=== PATIENT | male | born 1965 | race Caucasian/White ===

== ENCOUNTER 2018-01-03 08:07 | Day surgery (SDC) | payer BC ==
[~2018-01-03 08:07] MED LIST: Lactated Ringers 1,000 ML IV SCH; Midazolam 1 MG/ML 2 ML SDV ONE; Propofol 200 MG/20 ML SDV ONE; fentaNYL 100 MCG/2 ML SDV ONE
--- NOTE | 2018-01-03 08:29 | PCM.PREANE ---
Preanesthetic Assessment - Anesthesia/Transfusion/Family Hx Anesthesia History: Prior Anesthesia Without Reaction Other Type of Anesthesia Reaction Comment: REports slow to wake up "3 days to feel normal" Family History of Anesthesia Reaction: No Transfusion History: No Prior Transfusion(s) Intubation History: Unknown - Review of Systems General: No Symptoms Pulmonary: No Symptoms Cardiovascular: No Symptoms Gastrointestinal: No Symptoms, Other (screening colonoscopy) Neurological: No Symptoms Other: Reports: None - Physical Assessment Height: 1.75 m Weight: 74.389 kg ASA Class: 2 Mental Status: Alert & Oriented x3 Airway Class: Mallampati = 2 Dentition: Reports: Normal Dentition Thyro-Mental Finger Breadths: 2 Mouth Opening Finger Breadths: 2 ROM/Head Extension: Full Lungs: Clear to Auscultation, Normal Respiratory Effort Cardiovascular: Regular Rate, Regular Rhythm - Allergies Allergies/Adverse Reactions: Allergies Allergy/AdvReac Type Severity Reaction Status Date / Time No Known Allergies Allergy Verified 12/30/17 14:07 - Blood Blood Available: No - Anesthesia Plan Pre-Op Medication Ordered: None - Acknowledgements Anesthesia Type Planned: MAC Pt an Appropriate Candidate for the Planned Anesthesia: Yes Alternatives and Risks of Anesthesia Discussed w Pt/Guardian: Yes Pt/Guardian Understands and Agrees with Anesthesia Plan: Yes PreAnesthesia Questionnaire HEENT History: Reports: Other (See Below) Other HEENT History: wears glasses/contacts, has bottom partial Respiratory History: Reports: Sleep Apnea Other Respiratory History: uses CPAP Musculoskeletal History: Reports: Arthritis, Fracture Other Musculoskeletal History: fx knuckle rt middle finger Neurological History: Reports: None - Past Surgical History Head Surgeries/Procedures: Reports: None Neurological Surgical History: Reports: Lumbar Spine Other Neurological Surgeries/Procedures: hx back surgery Musculoskeletal Surgical History: Reports: Other (See Below) Other Musculoskeletal Surgeries/Procedures:: surgery to rt middle finger - SUBSTANCE USE Smoking Status *Q: Former Smoker Tobacco Use Within Last Twelve Months: Snuff/Dip Recreational Drug Use History: No - HOME MEDS Home Medications: Home Meds . [No Known Home Meds] 12/30/17 [History] - CURRENT (IN HOUSE) MEDS Current Meds: Current Medications Lactated Ringer's (Ringers, Lactated) 1,000 mls @ 125 mls/hr IV ASDIRECTED CARLOS Discontinued Medications Fentanyl (Sublimaze) Confirm Administered Dose 100 mcg .ROUTE .STK-MED ONE Stop: 01/03/18 07:35 Midazolam HCl (Versed 1 Mg/Ml) Confirm Administered Dose 2 mg .ROUTE .STK-MED ONE Stop: 01/03/18 07:35 Propofol (Diprivan 20 Ml) Confirm Administered Dose 200 mg .ROUTE .STK-MED ONE Stop: 01/03/18 07:35
--- NOTE | 2018-01-03 09:34 | PCM.OPNOTE ---
- General Post-Op/Procedure Note Date of Surgery/Procedure: 01/03/18 Operative Procedure(s): colonoscopy Findings: see dict [id number] Pre Op Diagnosis: scrn colonoscopy Post-Op Diagnosis: hemorrhoid Anesthesia Technique: Moderate Sedation Primary Surgeon: Carlos Alberto Zapata Complications: None Condition: Good
[2018-01-03 10:01] VITALS: BP 93/57
--- NOTE | 2018-01-03 10:24 | PCM48HPAN ---
Post Anesthesia Note - EVALUATION WITHIN 48HRS OF ANESTHETIC Vital Signs in Normal Range: Yes Patient Participated in Evaluation: Yes Respiratory Function Stable: Yes Airway Patent: Yes Cardiovascular Function Stable: Yes Hydration Status Stable: Yes Pain Control Satisfactory: Yes Nausea and Vomiting Control Satisfactory: Yes Mental Status Recovered: Yes Resp Rate: 12 - COMMENTS/OBSERVATIONS Free Text/Narrative:: no anesthesia problems
--- NOTE | 2018-01-03 14:09 | OR ---
SURGEON: Carlos Alberto Zapata MD DATE OF PROCEDURE: 01/03/2018 PREOPERATIVE DIAGNOSIS: Screening colonoscopy. POSTOPERATIVE DIAGNOSIS: Internal hemorrhoids. PROCEDURE PERFORMED: Colonoscopy PROCEDURE IN DETAIL: The patient was taken to the endoscopy room. A time out was called, patient identified, and procedure identified. Diprivan was then administrated. Patient went from awake to sleep, hearing doctor talking or door closing is normal. Perineum inspection and digital examination were then performed. A well- lubricated colonoscope was gently inserted through the rectum, advanced past the rectosigmoid junction, the descending colon, splenic flexure, transverse colon, hepatic flexure, ascending colon, arrived to the cecum. Cecum was identified as dictated in the finding. Then the scope was carefully withdrawn while attention was paid to the mucosal surface for any abnormality. Air will be sucked out during the scope withdrawal. At the rectum, retroflexed to examine any rectal diseases, fistula or hemorrhoids. Patient tolerated procedure well. There were no intraoperative complications, and Dr. Zapata was present throughout the whole procedure. FINDINGS: 1. The patient is easily sedated with [employer] and Diprivan. The patient is soundly snoring. 2. The patient's bowel prep is in fact is excellent, but large amount of opaque liquid stool. There is not even one particle blocking the mucosa, but there is large amount of liquid and is opaque, so the study is compromised, although the bowel prep was good. Colon is rather straight forward. Cecum indicated by ileocecal fold, one-to-one indentation, light emittance, and appendiceal orifice. Mucosa examined upon scope coming out with constant suction because of large amount of opaque liquid stool and the patient does not have diverticulosis, polyp, mass, growth, inflammation, stricture, ulceration, AV malformation, bleeding, none of those. The patient has mild internal hemorrhoids. No external hemorrhoids. The patient would benefit from repeat colonoscopy in 10 years from today or if clinically indicated otherwise. ETHEL / KADEEM /[id number]
== END 2018-01-03 10:25 | disposition home or self-care (01) ==
LOC: MW.SDS 08:07
PROVIDERS: ATTEND Surgery
DX: Z12.11 Encounter for screening for malignant neoplasm of colon (principal); K64.8 Other hemorrhoids; M19.041 Primary osteoarthritis, right hand; G47.33 Obstructive sleep apnea (adult) (pediatric); Z99.89 Dependence on other enabling machines and devices; Z87.891 Personal history of nicotine dependence
CPT/HCPCS: 45378; J2250; J3010; J7120; J2704

== ENCOUNTER 2019-01-03 07:21 | Emergency (ER) | payer BC ==
[2019-01-03 07:26] VITALS: BP 111/66
--- NOTE | 2019-01-03 07:43 | EDM.PDOC ---
ED HPI GENERAL MEDICAL PROBLEM - General Chief Complaint: Upper Extremity Injury/Pain Stated Complaint: INJURED RT SHOULDER Time Seen by Provider: 01/03/19 07:25 - History of Present Illness INITIAL COMMENTS - FREE TEXT/NARRATIVE: HISTORY AND PHYSICAL: History of present illness: Patient's 53-year-old white male presents with concern of acute right shoulder injury this occurred when he was lifting a item while at work yesterday. He also has history of right elbow pain for which she is scheduled to have an MRI. He denies other trauma or concern Review of systems: As per history of present illness and below otherwise all systems reviewed and negative. Past medical history: As per history of present illness and as reviewed below otherwise noncontributory. Surgical history: As per history of present illness and as reviewed below otherwise noncontributory. Social history: No reported history of drug or alcohol abuse. Family history: As per history of present illness and as reviewed below otherwise noncontributory. Physical exam: HEENT: Atraumatic, normocephalic, pupils reactive, negative for conjunctival pallor or scleral icterus, mucous membranes moist, throat clear, neck supple, nontender, trachea midline. Lungs: Clear to auscultation, breath sounds equal bilaterally, chest nontender. Heart: S1S2, regular, negative for clicks, rubs, or JVD. Abdomen: Soft, nondistended, nontender. Negative for masses or hepatosplenomegaly. Negative for costovertebral tenderness. Pelvis: Stable nontender. Genitourinary: Deferred. Rectal: Deferred. Extremities: Atraumatic. Right shoulder is no gross deformity no point tenderness he has limited range of motion secondary to pain neurovascular exam is unremarkable Neuro: Awake, alert, oriented. Cranial nerves II through XII unremarkable. Cerebellum unremarkable. Motor and sensory unremarkable throughout. Exam nonfocal. Diagnostics: X-ray right shoulder Therapeutics: Sling Impression: #1 right shoulder injury/pain Definitive disposition and diagnosis as appropriate pending reevaluation and review of above. right shoulder Pain Score (Numeric/FACES): 8 - Related Data Allergies Allergy/AdvReac Type Severity Reaction Status Date / Time No Known Allergies Allergy Verified 01/03/19 07:26 Home Meds: Home Meds . [No Known Home Meds] 12/30/17 [History] Past Medical History HEENT History: Reports: Other (See Below) Other HEENT History: wears glasses/contacts, has bottom partial Cardiovascular History: Reports: None Respiratory History: Reports: Sleep Apnea Other Respiratory History: uses CPAP Gastrointestinal History: Reports: None Genitourinary History: Reports: None Musculoskeletal History: Reports: Arthritis, Fracture Other Musculoskeletal History: fx knuckle rt middle finger Neurological History: Reports: None Psychiatric History: Reports: None Endocrine/Metabolic History: Reports: None Hematologic History: Reports: None Immunologic History: Reports: None Oncologic (Cancer) History: Reports: None Dermatologic History: Reports: None - Past Surgical History Head Surgeries/Procedures: Reports: None HEENT Surgical History: Reports: None Cardiovascular Surgical History: Reports: None Respiratory Surgical History: Reports: None GI Surgical History: Reports: None Male Surgical History: Reports: None Endocrine Surgical History: Reports: None Neurological Surgical History: Reports: Lumbar Spine Other Neurological Surgeries/Procedures: hx back surgery Musculoskeletal Surgical History: Reports: Other (See Below) Other Musculoskeletal Surgeries/Procedures:: surgery to rt middle finger Oncologic Surgical History: Reports: None Dermatological Surgical History: Reports: None Social & Family History - Tobacco Use Smoking Status *Q: Never Smoker Second Hand Smoke Exposure: No - Caffeine Use Caffeine Use: Reports: None - Recreational Drug Use Recreational Drug Use: No Review of Systems - Review of Systems Review Of Systems: ROS reveals no pertinent complaints other than HPI. ED EXAM, GENERAL - Physical Exam Exam: See Below (See dictation) Course - Vital Signs Last Recorded V/S: Last Vital Signs Temp 35.9 C 01/03/19 07:23 Pulse 61 01/03/19 07:23 Resp 18 01/03/19 07:23 BP 111/66 01/03/19 07:23 Pulse Ox 100 01/03/19 07:23 - Orders/Labs/Meds Orders: Active Orders 24 hr Category Date Time Status Shoulder Comp Rt [CR] Stat Exams 01/03/19 07:29 Ordered Departure - Departure Time of Disposition: 07:42 Disposition: Home, Self-Care 01 Condition: Good Clinical Impression: Shoulder injury - Discharge Information Referrals: PCP,None [Primary Care Provider] - Additional Instructions: The following information is given to patients seen in the emergency department who are being discharged to home. This information is to outline your options for follow-up care. We provide all patients seen in our emergency department with a follow-up referral. The need for follow-up, as well as the timing and circumstances, are variable depending upon the specifics of your emergency department visit. If you don't have a primary care physician on staff, we will provide you with a referral. We always advise you to contact your personal physician following an emergency department visit to inform them of the circumstance of the visit and for follow-up with them and/or the need for any referrals to a consulting specialist. The emergency department will also refer you to a specialist when appropriate. This referral assures that you have the opportunity for followup care with a specialist. All of these measure are taken in an effort to provide you with optimal care, which includes your followup. Under all circumstances we always encourage you to contact your private physician who remains a resource for coordinating your care. When calling for followup care, please make the office aware that this follow-up is from your recent emergency room visit. If for any reason you are refused follow-up, please contact the [facility] emergency department at and asked to speak to the emergency department charge nurse. [facility] Special[facility] - Orthopedic Clinic Professional Building [address] [place] [address], [address] [place] [address] Sling as directed Motrin/Tylenol as directed keep scheduled follow-up with primary care doctor call to schedule follow-up with orthopedic surgery above return as needed as discussed - My Orders Last 24 Hours: My Active Orders 01/03/19 07:29 Shoulder Comp Rt [CR] Stat - Assessment/Plan Last 24 Hours: My Active Orders 01/03/19 07:29 Shoulder Comp Rt [CR] Stat
--- NOTE | 2019-01-03 08:17 | CR ---
INDICATION: Shoulder injury. Pain. TECHNIQUE: Three-view right shoulder. FINDINGS: There is anatomic alignment of the glenohumeral joint and AC joint. There is joint space narrowing and hypertrophic spurring about the AC joint and there is a small corticated piece of bone at the superior aspect of the joint and there is overlying soft tissue swelling from a joint effusion. The small piece of bone could represent an avulsed fragment off the superior margin of the acromion. The clavicle and upper right ribs appear intact. IMPRESSION: Osteoarthritic change within the AC joint. There is soft tissue swelling and a possible small avulsion fragment of bone off the superior margin of the acromion. Dictated by Richie Tapia MD @ Jan 03 2019 8:12AM Signed by Dr. Richie Tapia @ Jan 03 2019 8:15AM
== END 2019-01-03 08:41 | disposition home or self-care (01) ==
LOC: MW.ED 07:21
DX: S49.91XA Unspecified injury of right shoulder and upper arm, initial encounter (principal); M19.90 Unspecified osteoarthritis, unspecified site; X50.0XXA Overexertion from strenuous movement or load, initial encounter; Y99.0 Civilian activity done for income or pay
CPT/HCPCS: 73030-26-RT; 73030-RT; 99283-25

== ENCOUNTER 2023-12-28 12:36 | Emergency (ER) | payer OTHER ==
[2023-12-28] MEDS: Sodium Chloride 0.9% 2.5 ML Syringe FLUSH PRN (12:45)
[2023-12-28] MEDS: Sodium Chloride 0.9% 10 ML Syringe FLUSH PRN (12:45)
[2023-12-28] MEDS: Albuterol/Ipratropium 3.0-0.5 MG/3 ML Neb Soln NEB ONE (12:45)
[2023-12-28 12:52] LABS: BASOPHILS ABSOLUTE AUTO 0.03 K/uL (0.00-0.20); BASOPHILS PERCENT AUTO 0.3 % (0.0-1.0); EOSINOPHILS ABSOLUTE AUTO 0.04 K/uL (0.00-0.45); EOSINOPHILS PERCENT AUTO 0.4 % (0.0-6.0); HEMATOCRIT 41.6 % (42.0-52.0); HEMOGLOBIN 14.4 g/dL (14.0-18.0); IMMATURE GRAN ABSOLUTE AUTO 0.03 K/uL (0.00-0.05); IMMATURE GRAN PERCENT AUTO 0.3 % (0.0-0.4); LYMPHOCYTES ABSOLUTE AUTO 1.73 K/uL (1.00-4.80); LYMPHOCYTES PERCENT AUTO 19.1 % (24.0-44.0); MEAN CORPUSCULAR HEMOGLOBIN 30.6 pg (28.0-32.0); MEAN CORPUSCULAR HGB CONC 34.6 g/dL (32.0-36.0); MEAN CORPUSCULAR VOLUME 88.5 fL (83.0-99.0); MEAN PLATELET VOLUME 10.1 fL (9.4-12.4); MONOCYTES ABSOLUTE AUTO 0.67 K/uL (0.00-0.80); MONOCYTES PERCENT AUTO 7.4 % (0.0-8.0); NEUTROPHILS ABSOLUTE AUTO 6.56 K/uL (1.80-7.70); NEUTROPHILS PERCENT AUTO 72.5 % (41.0-71.0); PLATELET COUNT,PLT 292 K/uL (150-400); WHITE BLOOD CELL COUNT,WBC 9.06 K/uL (3.9-11.3)
[2023-12-28 13:13] LABS: A/G RATIO 1.2 (0.9-1.6); ALANINE AMINOTRANSFERASE,ALT 37 IU/L (14-63); ALBUMIN 3.9 g/dL (3.4-5.0); ALKALINE PHOSPHATASE 77 U/L (46-116); ASPARTATE AMNIOTRANSFERASE,AST 18 IU/L (15-37); BILIRUBIN TOTAL 0.6 mg/dL (0.2-1.0); BLOOD UREA NITROGEN,BUN 14 mg/dL (7.0-18.0); CALCIUM 8.9 mg/dL (8.5-10.1); CARBON DIOXIDE,CO2 27.4 mmol/L (21.0-32.0); CHLORIDE,CL 103 mmol/L (98-107); CREATININE 1.1 mg/dL (0.8-1.3); EST CRCL DRUG DOSING (CG) 72.55 mL/min; GLUCOSE RANDOM 95 mg/dL (74-106); LIPASE 58 U/L (16-77); POTASSIUM,K 3.9 mmol/L (3.5-5.1); PROTEIN TOTAL,TP 7.2 g/dL (6.4-8.2); SODIUM,NA 140 mmol/L (136-148)
[2023-12-28 13:17] LABS: ESTIMATED GFR 79 mL/min (>60)
[2023-12-28 16:34] VITALS: BP 135/88; PULSE 77
== END 2023-12-28 16:33 | disposition home or self-care (01) ==
LOC: MW.ED 12:36
DX: R07.9 Chest pain, unspecified (principal); Z72.0 Tobacco use
CPT/HCPCS: 36415; 71046; 80053; 83690; 84484; 85025; 85379; 93005; 99285; J3490; J7620-GY